=== PATIENT | female | born 1950 ===

== ENCOUNTER 2024-11-28 21:07 | Emergency (ER) | payer SELFPAY ==
[~2024-11-28] VITALS: Ht 172.7 cm; Wt 56.4 kg
[2024-11-28 21:27] LABS: MEAN PLATELET VOLUME 8.7 FL (7.4-10.4); RED CELL DISTRIBUTION WIDTH 13.4 % (11.5-14.5)
[2024-11-28 21:47] LABS: CREATININE 0.62 MG/DL (0.40-0.90); PRO BRAIN NATRIURETIC PEPTIDE 284 PG/ML (0-450); TOTAL CARBON DIOXIDE 29.0 MMOL/L (24-32); eCRCL 69 ML/MIN; eGFR > 90 ML/MIN
--- NOTE | 2024-11-28 21:53 | RADIOLOGY REPORT ---
CHEST RADIOGRAPH Indication: CP Technique: Single frontal view of the chest was obtained Comparison: None FINDINGS: Lines and Tubes: None Lungs: Right infrahilar and left hilar fullness. Pleura: No effusion. No pneumothorax. Cardiomediastinal contours: Unremarkable Bones: No acute osseous abnormality. IMPRESSION: Right infrahilar and left hilar fullness. CT is recommended for further evaluation.
[2024-11-28 23:31] LABS: LEUKOCYTE ESTERASE ,URINE SMALL (Neg); NITRITES, URINE NEGATIVE (Neg); OCCULT BLOOD,URINE NEGATIVE (Neg)
[2024-11-28 23:44] LABS: UA COLLECTION TYPE NON-SPECIFIED
[2024-11-28 23:45] LABS: MUCUS STRANDS MODERATE /LPF (Neg); SQUAMOUS EPITHELIAL CELL,UR MODERATE /LPF (FEW)
[2024-11-29] MEDS ORDERED: CEPH-585 PO (00:15)
--- NOTE | 2024-11-29 00:15 | Physician Documentation ---
History of Present Illness ~ Chief Complaint: Syncope Stated Complaint: SEIZURE Time Seen by MD: 21:13 OK to notify your PCP?: Yes Mode of Arrival: EMS HPI Patient had a syncopal event in the kitchen. Happened around 2029. One incontinent epidsode. No headstrike. No thinner. Upon EMS arrival patient was AxO x2, but quickly resolved to AxO x4. Family concerned since patient in independent and still works so this is out of her norm. Medication Reconciliation Allergies: Coded Allergies: iodine (Verified Allergy, Severe, 11/28/24) Sulfa (Sulfonamide Antibiotics) (Verified Allergy, Unknown, 11/28/24) codeine (Verified Allergy, Unknown, 11/28/24) Past Medical History Smoking Status: Unknown if ever smoked Review of Systems All Other Systems at this time: Reviewed and Negative Physical Exam Vital Signs: RN Vital Signs have been reviewed: Yes, Temperature: 97.7, Source: Oral, Heart Rate: 66, Respiratory Rate: 14, BP: 139/70, Pulse Oximetry: 95, Weight: 56.400 Oxygen Flow Rate: 0 Physical Exam HEENT: PERRL, moist oral mucosa, EOMI Pulmonary: No respiratory distress Cardiac: RRR, no murmur, rub or gallop MSK: no deformity Skin: w/d/i, no rash Neuro: alert, nonfocal Psych: normal affect Progress Results/Orders Results/Orders Orders - CRISSY TAMAYO MD Chest,Single View (11/28/24 21:10) Monitor (11/28/24 21:10) Saline Lock (11/28/24 21:10) Oxygen (11/28/24 21:10) Electrocardiogram (11/28/24 21:10) Hs Troponin I W Calculations (11/29/24 00:10) Cult Urine + [address] (11/28/24 23:44) Completed Orders - CRISSY TAMAYO MD Chest,Single View (11/28/24 21:10) Cbc/Diff (11/28/24 21:10) BMP (11/28/24 21:10) PBNP (11/28/24 21:10) Hs Troponin I W Calculations (11/28/24 21:10) Hs Troponin I W Calculations (11/28/24 23:10) Ua W/Microscopic, Cult If Ind (11/28/24 22:53) Vital Signs 11/28/24 11/28/24 11/28/24 11/28/24 21:10 21:16 21:16 22:10 Temp 97.7 97.7 Pulse 63 67 Resp 20 8 18 B/P (MAP) 163/85 160/80 (106) Pulse Ox 97 93 O2 Delivery Room Air* O2 Flow Rate 0 0 0 FiO2 21 21 11/28/24 23:10 Temp 97.7 Pulse 66 Resp 14 B/P (MAP) 139/70 (93) Pulse Ox 95 O2 Flow Rate 0 FiO2 21 Laboratory Tests Test 11/28/24 21:19 11/28/24 22:53 11/28/24 23:27 White Blood Count 9.1 Red Blood Count 4.02 L Hemoglobin 13.2 Hematocrit 39.8 Mean Corpuscular Volume 98.8 H Mean Corpuscular Hemoglobin 32.7 H Mean Corpuscular Hemoglobin Concent 33.1 Red Cell Distribution Width 13.4 Platelet Count 183 Mean Platelet Volume 8.7 Neutrophils (%) (Auto) 56.5 Lymphocytes (%) (Auto) 30.2 Monocytes (%) (Auto) 9.3 Eosinophils (%) (Auto) 2.8 Basophils (%) (Auto) 1.2 H Neutrophils # (Auto) 5.1 Lymphocytes # (Auto) 2.7 Monocytes # (Auto) 0.8 Eosinophils # (Auto) 0.3 Basophils # (Auto) 0.1 CBC Comment Sodium Level 139 Potassium Level 3.9 Chloride Level 106 Carbon Dioxide Level 29.0 Anion Gap 4 L Blood Urea Nitrogen 12 Creatinine 0.62 Estimated GFR/1.73 m2 > 90 BUN/Creatinine Ratio 19.4 Glucose Level 99 Calcium Level 7.9 L Troponin I High Sensitivity 7 8 Pro-B-Type Natriuretic Peptide 284 Albumin 2.8 L Chemistry Comments Urine Specimen Description Non-specified Urine Color Yellow Urine Clarity Clear Urine pH 6.0 Urine Specific [place] 1.025 Urine Protein 100 H Urine Glucose (UA) Negative Urine Ketones Negative Urine Occult Blood Negative Urine Nitrite Negative Urine Bilirubin Negative Urine Urobilinogen 0.2 Urine Leukocyte Esterase Small H Urine RBC None seen Urine WBC 50-100 H Urine Squamous Epithelial Cells Moderate Urine Bacteria Few Urine Mucus Moderate Urine Culture Indicated Indicated Volume Urine Centrifuged 10 ml Urine Comment Troponin I High Sens Percent Delta 14 Troponin I Hi Sens Absolute Change 1 Medical Decision Making Additional information obtaine: N/A Findings 74 year old female with syncopal episode, appearing well and asymptomatic on arrival. Workup suggested UTI as cause. Rx ABx return precautions, no dysrythmias on telemonitor. Differential Dx:Considerations: Include: cerebral occlusion, cerebral thrombosis, dehydration, hypoglycemia, hypovolemia, labyrinthitis, Meniere's disease, pulmonary embolus, TIA, vertigo central, vertigo peripheral Departure Disposition: 01 HOME / SELF CARE / HOMELESS Impression: Primary Impression: UTI (urinary tract infection) Condition: Stable Discharge Instructions: Urinary Tract Infection, Adult Referrals: NO PRIMARY CARE PROVIDER (PCP) Prescriptions Cephalexin*Monohydrate* (Keflex*) 500 Mg Capsule 1 CAP PO QID, #28 CAP Prov: CRISSY TAMAYO MD 11/29/24 Education Educated: Patient Educated regarding: diagnosis, treatment, prognosis, need for follow up Signature Scribe Signature: . Attestation: . CRISSY TAMAYO MD Nov 29, 2024 00:15
[2024-11-29 00:31] VITALS: BP 143/81; PULSE 69; RESP 18; TEMP 97.7; O2SAT 95
--- NOTE | 2024-11-30 04:59 | ELECTROCARDIOGRAPH REPORT ---
[facility] Test Date: 2024-11-28 Test Time: 21:12:40 Pat Name: ANGELICA GRUBER Department: EMERGENCY ROOM Room: Gender: F Video Game Designer: PM : 1950 Requested By: CRISSY TAMAYO Order Number: [id number] Reading MD: Measurements Intervals [place] Rate: 66 P: 70 CT: 174 QRS: -12 QRSD: 104 T: 63 QT: 440 QTc: 461 Interpretive Statements Sinus rhythm Please click the below link to view image of tracing.
== END 2024-11-29 01:10 | disposition home or self-care (01) ==
LOC: ER 21:08
DX: N39.0 Urinary tract infection, site not specified (principal); R55 Syncope and collapse; Z88.2 Allergy status to sulfonamides; Z88.5 Allergy status to narcotic agent; Z88.8 Allergy status to other drugs, medicaments and biological substances
CPT/HCPCS: 36415; 71045; 80048; 81001; 83880; 84484; 85025; 87088; 93005; 99285